=== PATIENT | male | born 1960 | race Caucasian/White ===

== ENCOUNTER 2020-07-29 09:50 | Emergency (ER) | payer BC ==
[~2020-07-29] VITALS: Ht 190.5 cm; Wt 95.5 kg
[2020-07-29 10:10] VITALS: Ht 190.5 cm; Wt 95.5 kg
[2020-07-29] MEDS ORDERED: ULTRAM50 MG PO (10:35)
[2020-07-29 11:14] VITALS: BP 149/87
== END 2020-07-29 11:14 | disposition home or self-care (01) ==
LOC: D.ER 09:50
DX: M54.30 Sciatica, unspecified side (principal)